=== PATIENT | male | born 1995 | race Two or more races ===

== ENCOUNTER 2016-08-10 14:12 | Emergency (ER) | payer OTHER ==
[2016-08-10 15:26] LABS: microscopic required? NO
[2016-08-10 15:41] VITALS: BP 130/66
[2016-08-10 15:55] LABS: urine erythrocyte NEGATIVE (NEGATIVE)
== END 2016-08-10 15:41 | disposition home or self-care (01) ==
LOC: ED 14:12
PROVIDERS: Emergency Medicine
DX: M54.9 Dorsalgia, unspecified (principal)
CPT/HCPCS: J1100; J1885